=== PATIENT | female | born 1975 | race American Indian/Alaskan Native ===

== ENCOUNTER 2016-10-17 11:34 | Emergency (ER) | payer OTHER, BC ==
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
[2016-10-17 12:53] LABS: Basophils % (Auto) 0.4 % (0.0-1.8); Eosinophils % (Auto) 0.2 % (0.0-4.3); Hemoglobin 9.3 gm/dl (10.1-14.3); Mean Corpuscular HGB Conc 32 % (30-34); Mean Corpuscular Volume 72 fl (79-97); Platelet Count 356 K/mm3 (140-440); Red Blood Count 4.02 M/mm3 (3.65-5.03); Red Cell Distribution Width 15.4 % (13.2-15.2); White Blood Count 9.4 K/mm3 (4.5-11.0)
[2016-10-17 12:57] LABS: Mean Corpuscular Hemoglobin 23 pg (28-32)
[2016-10-17 13:03] LABS: INR 1.15 (0.87-1.13); Partial Thromboplastin Time 29.6 Sec. (24.2-36.6)
[2016-10-17 13:14] LABS: Alanine Aminotransferase 17 units/L (7-56); Albumin 3.3 g/dL (3.9-5); Albumin/Globulin Ratio 0.8 %; Alkaline Phosphatase 122 units/L (35-129); Anion Gap 22 mmol/L; Blood Urea Nitrogen 9 mg/dL (7-17); Carbon Dioxide 19 mmol/L (22-30); Chloride 98.4 mmol/L (98-107); Glucose 108 mg/dL (65-100); Potassium 4.1 mmol/L (3.6-5.0); Sodium 135 mmol/L (137-145); Total Protein 7.5 g/dL (6.3-8.2)
[2016-10-17 13:21] LABS: Bacteria,Urine 2+ /HPF (Negative); Bilirubin,Urine NEG (Negative); Blood,Urine NEG (Negative); Ketones,Urine NEG (Negative); Leukocyte Esterase,Urine NEG (Negative); Mucus,Urine FEW /HPF; Nitrite,Urine NEG (Negative); Protein,Urine <15 mg/dL mg/dL (Negative); Urobilinogen,Urine < 2.0 mg/dL (<2.0)
--- NOTE | 2016-10-17 15:47 | Ultrasound Report ---
Gestation: thomas Position: cephalic Amniotic Fluid: WNL PERI = cm Placenta: posterior and fundal Placental Grade: 0 Heart Rate: 152 BPM Cervical length: 5 cm (Normal > 3 cm) It is too early for a anatomical survey NEUROANATOMY VISUALIZED: Choroid Plexus Lateral Ventricle ANATOMY VISUALIZED: Stomach Kidneys Bladder Diaphragm 4 Chamber Heart Heart 3 Vessel Cord Abd. Cord Insert SPINE VISUALIZED: Longitudinal Transverse BPD: 4.5 cm =20 w 1 d HC: 17.6 cm = 20 w 0 d AC: 15.3 cm = 20 w 4 d FL: 3.4 cm = 20 w 4 d HC/AC Ratio: 1.15 Cephalic Index: 85.8 Estimated Weight: 356 grams LMP: Clinical age = 19 w 5 d EDC: 03/08/17 US Gest. Age = 20 w 2 d EDC: 03/04/17 Comment:A large posterior fundal fibroid measuring 14.0 x 12.3 x 18 cm is present. The examination was limited technically by the patient's discomfort and inability to fully cooperate for optimal imaging of neuroanatomy as noted above.
[2016-10-17] MEDS ORDERED: NACL 0.9% 1000 ML 1,000 ML IV ONE (17:34)
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
[2016-10-17 19:32] VITALS: BP 128/78
== END 2016-10-17 19:32 | disposition home or self-care (01) ==
LOC: ED 11:34
DX: O9A.212 Injury, poisoning and certain other consequences of external causes complicating pregnancy, second trimester (principal); R55 Syncope and collapse; E86.0 Dehydration; Z3A.20 20 weeks gestation of pregnancy
CPT/HCPCS: 36415; 76805; 76817; 80053; 81001; 84484; 84702; 85025; 85379; 85610; 85730; 93005; 93010; 96360; 99284; J7030